=== PATIENT | female | born 1990 | race Caucasian/White ===

== ENCOUNTER 2019-10-29 14:23 | Emergency (ER) | payer SELFPAY ==
[~2019-10-29 14:23] MED LIST: CEPHALEXIN500 M1 PO
[2019-10-29] MEDS ORDERED: AMOXICILLIN500 M2 PO (14:40)
[2019-10-29] MEDS ORDERED: CLINDAMYCIN300 M1 PO (14:40)
[2019-10-29 14:42] VITALS: BP 149/98
== END 2019-10-29 14:58 | disposition home or self-care (01) | DRG 159 ==
LOC: ED 14:23
DX: K03.81 Cracked tooth (principal)

== ENCOUNTER 2021-09-26 20:07 | Emergency (ER) | payer OTHER ==
[~2021-09-26] VITALS: Ht 167.6 cm; Wt 123.0 kg
[~2021-09-26 20:07] MED LIST changes: +AMOXICILLIN500 M2 PO; +CLINDAMYCIN300 M1 PO
[2021-09-26] MEDS ORDERED: AMOX/K CLAV875 M1 PO (21:33)
[2021-09-26] MEDS ORDERED: LORTAB 1010 MG PO (21:33)
[2021-09-26 22:02] VITALS: BP 131/93
== END 2021-09-26 22:02 | disposition home or self-care (01) ==
LOC: ED 20:07
DX: S51.852A Open bite of left forearm, initial encounter (principal); S51.851A Open bite of right forearm, initial encounter; W54.0XXA Bitten by dog, initial encounter; Y92.009 Unspecified place in unspecified non-institutional (private) residence as the place of occurrence of the external cause

== ENCOUNTER 2024-06-03 23:48 | Emergency (ER) | payer BC ==
[~2024-06-03] VITALS: Ht 167.6 cm; Wt 90.0 kg
[~2024-06-03 23:48] MED LIST changes: +AMOX/K CLAV875 M1 PO; +LORTAB 1010 MG PO
[2024-06-03 23:55] VITALS: BP 112/72
[2024-06-03] MEDS ORDERED: IBUPROFEN 600 MG/TAB PO ONE (23:55)
[2024-06-03] MEDS ORDERED: ACETAMINOPHEN 500 MG TAB PO ONE (23:55)
[2024-06-04 00:16] VITALS: BP 108/54
[2024-06-04 00:31] VITALS: BP 107/55
[2024-06-04 00:53] VITALS: BP 107/55
== END 2024-06-04 00:53 | disposition home or self-care (01) | DRG 563 ==
LOC: ED 23:48
DX: S93.402A Sprain of unspecified ligament of left ankle, initial encounter (principal); X50.0XXA Overexertion from strenuous movement or load, initial encounter

== ENCOUNTER 2024-07-30 07:44 | Emergency (ER) | payer BC ==
[~2024-07-30] VITALS: Ht 167.6 cm; Wt 124.0 kg
[2024-07-30] VITALS (8 sets, daily range): BP systolic 122–139; BP diastolic 87–97
[2024-07-30] MEDS ORDERED: DEXAMETHASONE SOD. PHOSPHATE 10 MG/ML VIAL IM ONE (08:10)
[2024-07-30] MEDS ORDERED: MEDDOSEPAK PO (09:10)
[2024-07-30] MEDS ORDERED: BENZONATATE200 MG PO (09:10)
[2024-07-30] MEDS ORDERED: ZPAK PO (09:10)
== END 2024-07-30 09:29 | disposition home or self-care (01) | DRG 203 ==
LOC: ED 07:44
DX: J20.9 Acute bronchitis, unspecified (principal); Z20.822 Contact with and (suspected) exposure to COVID-19